=== PATIENT | female | born 1935 | race Caucasian/White ===

== ENCOUNTER 2017-02-22 05:04 | Emergency (ER) | payer OTHER ==
[~2017-02-22 05:04] MED LIST: ALLOPURINOL; ALLOPURINOL100 MG PO; ALLOPURINOL100 PO; AMBIE; AMLODIPINE10 MG PO; ATI0.5 PO; BAY PO; BENAZEPRIL10 MG PO; COLCRYS0.6 MG PO; COR3 PO; ECO81 PO; ESCITALOPRAM10 MG PO; FUROCOT40 MG PO; GABAPENTIN100 M2 PO; GABAPENTIN300 MG PO; HYDROXYCHLOROQ200 M2 PO; IMDUR30 MG PO; ISOSORBIDE MONO30 MG PO; K10 PO; KLOR-CON M2020 MEQ PO; L40 PO; LASIX; LASIX40 MG PO; LEVOTHYROXINE; LEVOTHYROXINE0.2 M2 PO; LORAZEPAM1 MG PO; LOTENSIN10 MG PO; MAC100 PO; METOLAZONE2.5 MG PO; NEURONTIN PO; NEURONTIN300 PO; POTASSIUM20 MEQ PO; SIMVASTATIN20 M1 PO; SYN125 PO; SYN2 PO; SYNTHROID PO; TRAMADOL HCL50 MG PO; TRAMADOL50 MG PO; ULORIC40 M1 PO; ULTRAM50 MG PO; VIT-GEN1 TAB; Z5 PO; ZES10 PO; ZOC20 PO
[2017-02-22 05:52] LABS: CALCIUM 8.3 mg/dL (8.5-10.1); CARBON DIOXIDE 30.2 mmol/L (21-32); CHLORIDE SERUM 108 mmol/L (98-107); CREATININE SERUM 1.3 mg/dL (0.6-1.0); GLUCOSE SERUM 101 mg/dL (74-106); POTASSIUM SERUM 4.1 mmol/L (3.5-5.1); SODIUM SERUM 142 mmol/L (136-145)
[2017-02-22 05:53] LABS: BASOPHIL % 0.6 % (0-2); PLATELET COUNT 136 x10^3mcL (130-400)
[2017-02-22 05:56] LABS: ALBUMIN 3.4 g/dL (3.4-5.0); ALKALINE PHOSPHATASE 122 U/L (46-116); ALT/SGPT 13 U/L (14-59); AST/SGOT 17 U/L (15-37); BILIRUBIN TOTAL 0.46 mg/dL (0.20-1.00); MAGNESIUM 2.1 mg/dL (1.8-2.4); TOTAL PROTEIN, SERUM 7.1 g/dL (6.4-8.2)
[2017-02-22 06:01] LABS: RED CELL DISTRIBUTION WIDTH 14.8 % (11.5-14.5)
[2017-02-22 06:07] LABS: CK-MB 0.7 ng/mL (0-3.6)
[2017-02-22 07:44] VITALS: BP 159/74
== END 2017-02-22 07:44 | disposition home or self-care (01) ==
LOC: ED 05:04
PROVIDERS: Emergency Medicine
DX: R10.13 Epigastric pain (principal); I10 Essential (primary) hypertension; M06.9 Rheumatoid arthritis, unspecified
CPT/HCPCS: 83880; Q0092

== ENCOUNTER 2017-06-18 20:25 | Observation (INO) | payer OTHER ==
[~2017-06-18] VITALS: Ht 167.6 cm; Wt 76.9 kg
--- NOTE | 2017-06-18 20:50 | NUR ---
REC'D A 81/F IN RM 9 WITH C/O EPIGASTRIC CHEST PAIN SINCE 4PM. PT REPORTS THE PAIN RADIATES TO THE LEFT SIDE. PT DENIES N/V. PT AAOX4, RESP EVEN AND UNLABORED. PT STATES THE PAIN IS NO LONGER AT THE EPIGASTRIC BUT ON THE LEFT SIDE OF THE LOWER BACK. ON CM. CALL LIGHT WITHIN REACH, [facility]
--- NOTE | 2017-06-18 20:58 | NUR ---
MEDICATED PT ORDERED. PLEASE SEE EMAR.
[2017-06-18 21:21] LABS: BASOPHIL % 1.2 % (0-2); PLATELET COUNT 152 x10^3mcL (130-400)
[2017-06-18 21:22] LABS: RED CELL DISTRIBUTION WIDTH 14.7 % (11.5-14.5)
[2017-06-18 21:35] LABS: CALCIUM 8.4 mg/dL (8.5-10.1); CARBON DIOXIDE 27.1 mmol/L (21-32); CHLORIDE SERUM 107 mmol/L (98-107); CREATININE SERUM 1.3 mg/dL (0.6-1.0); GLUCOSE SERUM 91 mg/dL (74-106); POTASSIUM SERUM 4.6 mmol/L (3.5-5.1); SODIUM SERUM 144 mmol/L (136-145)
[2017-06-18 21:42] LABS: ALBUMIN 3.7 g/dL (3.4-5.0); ALKALINE PHOSPHATASE 115 U/L (46-116); ALT/SGPT 10 U/L (14-59); AST/SGOT 17 U/L (15-37); BILIRUBIN TOTAL 0.54 mg/dL (0.20-1.00)
--- NOTE | 2017-06-18 23:34 | NUR ---
REPORT GIVEN TO GLORIA QUINTANA TO ASSUME CARE OF THE PT.
[2017-06-19 00:33] VITALS: BP 164/43
--- NOTE | 2017-06-19 00:48 | NUR ---
RECEIVED PATIENT FROM ED VIA GUERNEY, PATIENT ALERT AND ORIENTED DAUGHTER AT BEDSIDE, TELE # 47 SR, IV ACCESS TO RFA WNL, NO C/O PAIN AT THIS TIME, ORIENTED PATIENT TO ROOM AND SURROUNDINGS, BED IN LOW POSITION, BED RAILS UP X 2, CALL LIGHT WITHIN REACH, WILL CONTINUE TO MONITOR
[2017-06-19] MEDS ORDERED: LOSARTAN POTASS1 TAB PO (01:03)
[2017-06-19] MEDS ORDERED: RESTASIS0.051 OU (01:05)
[2017-06-19] MEDS ORDERED: FML OU (01:05)
[2017-06-19 02:52] LABS: FREE T4 1.83 ng/dL (0.76-1.46)
[2017-06-19 02:53] LABS: FREE THYROXINE INDEX 5.1 ug/dL (1.4-4.5); T4(THYROXINE) 13.7 ug/dL (4.7-13.3)
[2017-06-19 02:56] LABS: MAGNESIUM 2.4 mg/dL (1.8-2.4); PHOSPHOROUS 3.9 mg/dL (2.5-4.9)
[2017-06-19 03:01] LABS: CHOLESTEROL/HDL RATIO 1.5
[2017-06-19 03:07] LABS: T3 TOTAL 1.01 ng/mL
[2017-06-19 06:29] VITALS: BP 148/40
--- NOTE | 2017-06-19 06:40 | NUR ---
PATIENT RESTING IN BED, IN NO ACUTE DISTRESS, NO C/O PAIN AT THIS TIME, NO SIGNIFICANT CHANGES LAST SHIFT, BED IN LOW POSITION, BED RAILS UP X 2, CALL LIGHT WITHIN REACH, WILL ENDORSE CARE TO AM NURSE
[2017-06-19 06:48] LABS: CALCIUM 7.8 mg/dL (8.5-10.1); CHLORIDE SERUM 111 mmol/L (98-107); CREATININE SERUM 1.1 mg/dL (0.6-1.0); GLUCOSE SERUM 74 mg/dL (74-106); MAGNESIUM 2.3 mg/dL (1.8-2.4); SODIUM SERUM 146 mmol/L (136-145)
--- NOTE | 2017-06-19 07:30 | NUR ---
ALERT AND ORIENTED. SLIGHLTY TORRES MARTINEZ. BREATHING FREELY ON RA. TELE # 47 NSR. DENIES ANY PAIN CHEST OR OTHERWISE. NS INFUSING 100 CC HOUR. INDEPENDENT W ADL'S. CALL LIGHT WITHIN REACH. INSTRUCTED TO USE FOR ANY NEEDS OR NEDED ASSIST.BED IN LOW POSITION, SR UP X 2, HOB ELEVATED 35 DEGREES.
[2017-06-19 08:06] LABS: BASOPHIL % 0.6 % (0-2)
[2017-06-19 08:15] LABS: PLATELET COUNT 129 x10^3mcL (130-400); RED CELL DISTRIBUTION WIDTH 14.6 % (11.5-14.5)
[2017-06-19 09:56] LABS: UA SPECIFIC GRAVITY 1.015 (1.005-1.035); microscopic required? YES; urine erythrocyte TRACE (NEGATIVE)
[2017-06-19 10:04] VITALS: BP 167/47
[2017-06-19 14:14] VITALS: BP 152/37
[2017-06-19 14:45] VITALS: BP 152/37
--- NOTE | 2017-06-19 17:09 | NUR ---
DC'D TO HOME. TELE # 47 RETURNED TO TELE STATION. IV DC'D. T.C. TO DTR DIXIE BALLARD HER KNOW PT IS READY TO GO HOME. F/U DORENE GIVEN FOR DR. LEON. ALL DC INSTRUCTIONS REVIEWED WITH AND SIGNED BY PT.
--- NOTE | 2017-06-19 17:33 | NUR ---
NOTICED PT WAS GONE. DID NOT INFORM ANY STAFF MEMBERS WHEN SHE LEFT. PT SAID EARLIER THAT HER DTR DIXIE WAS ON HER WAY TO PICK PT UP.
== END 2017-06-19 17:30 | disposition home or self-care (01) | DRG 308 ==
LOC: ED 20:25 → DU 22:40
PROVIDERS: Specialist; ADMIT Family Medicine
DX: R00.2 Palpitations (principal); N17.0 Acute kidney failure with tubular necrosis; T38.1X5A Adverse effect of thyroid hormones and substitutes, initial encounter; D64.9 Anemia, unspecified; I35.1 Nonrheumatic aortic (valve) insufficiency; E03.9 Hypothyroidism, unspecified; I25.10 Atherosclerotic heart disease of native coronary artery without angina pectoris; E83.51 Hypocalcemia; I25.2 Old myocardial infarction; Z79.82 Long term (current) use of aspirin; Z68.27 Body mass index [BMI] 27.0-27.9, adult; Y92.009 Unspecified place in unspecified non-institutional (private) residence as the place of occurrence of the external cause
CPT/HCPCS: 83880; 84439; G0378; J7030; Q0092

== ENCOUNTER 2018-05-20 17:49 | Emergency (ER) | payer OTHER ==
[~2018-05-20] VITALS: Ht 167.6 cm; Wt 74.8 kg
[~2018-05-20 17:49] MED LIST changes: +FML OU; +LOSARTAN POTASS1 TAB PO; +RESTASIS0.051 OU
[2018-05-20 17:54] VITALS: Ht 167.6 cm; Wt 74.8 kg
[2018-05-20 20:14] VITALS: BP 160/49
== END 2018-05-20 20:14 | disposition home or self-care (01) ==
LOC: ED 17:49
DX: S80.12XA Contusion of left lower leg, initial encounter (principal); M32.9 Systemic lupus erythematosus, unspecified; Z90.710 Acquired absence of both cervix and uterus; Z86.73 Personal history of transient ischemic attack (TIA), and cerebral infarction without residual deficits; W22.8XXA Striking against or struck by other objects, initial encounter; Y93.89 Activity, other specified; Y92.89 Other specified places as the place of occurrence of the external cause; Y99.8 Other external cause status; I10 Essential (primary) hypertension
CPT/HCPCS: Q0092

== ENCOUNTER 2018-08-15 21:08 | Emergency (ER) | payer OTHER ==
[~2018-08-15] VITALS: Ht 170.2 cm; Wt 75.7 kg
[2018-08-15 21:14] VITALS: Ht 170.2 cm; Wt 75.7 kg
[2018-08-16 00:28] VITALS: BP 136/68
== END 2018-08-16 00:28 | disposition home or self-care (01) ==
LOC: ED 21:08
DX: S01.01XA Laceration without foreign body of scalp, initial encounter (principal); S40.012A Contusion of left shoulder, initial encounter; I10 Essential (primary) hypertension; Z88.5 Allergy status to narcotic agent; Z90.710 Acquired absence of both cervix and uterus; Z86.73 Personal history of transient ischemic attack (TIA), and cerebral infarction without residual deficits; W18.09XA Striking against other object with subsequent fall, initial encounter; Y93.89 Activity, other specified; Y92.89 Other specified places as the place of occurrence of the external cause; Y99.8 Other external cause status
CPT/HCPCS: 90715; J2001

== ENCOUNTER 2018-08-18 21:20 | Inpatient (IN) | payer OTHER ==
[~2018-08-18] VITALS: Ht 170.2 cm; Wt 72.1 kg
[2018-08-18 22:28] LABS: CALCIUM 8.5 mg/dL (8.5-10.1); CARBON DIOXIDE 28.8 mmol/L (21-32); CHLORIDE SERUM 107 mmol/L (98-107); CREATININE SERUM 1.2 mg/dL (0.6-1.0); GLUCOSE SERUM 111 mg/dL (74-106); POTASSIUM SERUM 3.5 mmol/L (3.5-5.1); RED CELL DISTRIBUTION WIDTH 14.2 % (11.5-14.5); SODIUM SERUM 144 mmol/L (136-145)
[2018-08-18 22:33] LABS: ALBUMIN 3.4 g/dL (3.4-5.0); ALKALINE PHOSPHATASE 100 U/L (46-116); ALT/SGPT 17 U/L (14-59); AST/SGOT 24 U/L (15-37); BILIRUBIN TOTAL 0.5 mg/dL (0.20-1.00); PLATELET COUNT 103 x10^3mcL (130-400); TOTAL PROTEIN, SERUM 7.6 g/dL (6.4-8.2)
[2018-08-18] MEDS ORDERED: CARVEDILOL12.5 M1 PO (23:42)
[2018-08-18] MEDS ORDERED: XARELTO10 M1 PO (23:42)
[2018-08-18] MEDS ORDERED: FERROUS SULFAT PO (23:42)
[2018-08-18] MEDS ORDERED: FUROSEMIDE20 MG PO (23:42)
[2018-08-18] MEDS ORDERED: MEMANTINE HCL10 MG PO (23:42)
[2018-08-18] MEDS ORDERED: AMIODARONE HCL200 MG PO (23:42)
[2018-08-18] MEDS ORDERED: GOOD SENSE OMEP20 MG PO (23:42)
[2018-08-18] MEDS ORDERED: POTASSIUM CHLO10 MEQ PO (23:43)
[2018-08-19] VITALS (7 sets, daily range): BP systolic 141–197; BP diastolic 40–55
[2018-08-19 05:57] LABS: BASOPHIL % 0.9 % (0-2); PLATELET COUNT 165 x10^3mcL (130-400); RED CELL DISTRIBUTION WIDTH 14.2 % (11.5-14.5)
[2018-08-19 06:19] LABS: CALCIUM 8.3 mg/dL (8.5-10.1); CARBON DIOXIDE 29.7 mmol/L (21-32); CHLORIDE SERUM 109 mmol/L (98-107); CREATININE SERUM 1.2 mg/dL (0.6-1.0); GLUCOSE SERUM 96 mg/dL (74-106); POTASSIUM SERUM 3.4 mmol/L (3.5-5.1); SODIUM SERUM 146 mmol/L (136-145)
== END 2018-08-19 17:30 | disposition short-term general hospital (02) | DRG 282 ==
LOC: ED 21:20 → DU 23:16
PROVIDERS: Emergency Medicine; Internal Medicine
DX: I21.4 Non-ST elevation (NSTEMI) myocardial infarction (principal); I10 Essential (primary) hypertension; E87.6 Hypokalemia; E78.49 Other hyperlipidemia; Z86.73 Personal history of transient ischemic attack (TIA), and cerebral infarction without residual deficits; Z90.710 Acquired absence of both cervix and uterus; Z82.49 Family history of ischemic heart disease and other diseases of the circulatory system; Z80.3 Family history of malignant neoplasm of breast; Z80.9 Family history of malignant neoplasm, unspecified; Z79.899 Other long term (current) drug therapy
CPT/HCPCS: J1650; J3475

== ENCOUNTER 2018-08-26 20:04 | Emergency (ER) | payer OTHER ==
[~2018-08-26 20:04] MED LIST changes: +AMIODARONE HCL200 MG PO; +CARVEDILOL12.5 M1 PO; +FERROUS SULFAT PO; +FUROSEMIDE20 MG PO; +GOOD SENSE OMEP20 MG PO; +MEMANTINE HCL10 MG PO; +POTASSIUM CHLO10 MEQ PO; +XARELTO10 M1 PO
[2018-08-26 20:43] VITALS: Ht 170.2 cm
[2018-08-26 23:12] VITALS: BP 155/87
== END 2018-08-26 23:12 | disposition home or self-care (01) ==
LOC: ED 20:04
DX: S01.91XA Laceration without foreign body of unspecified part of head, initial encounter (principal); I10 Essential (primary) hypertension; M06.9 Rheumatoid arthritis, unspecified; M32.9 Systemic lupus erythematosus, unspecified; M10.9 Gout, unspecified; Z86.73 Personal history of transient ischemic attack (TIA), and cerebral infarction without residual deficits; Z90.710 Acquired absence of both cervix and uterus; Z90.49 Acquired absence of other specified parts of digestive tract; X58.XXXD Exposure to other specified factors, subsequent encounter

== ENCOUNTER 2018-08-31 17:45 | Emergency (ER) | payer OTHER ==
[~2018-08-31] VITALS: Ht 167.6 cm; Wt 74.4 kg
[2018-08-31 18:25] VITALS: Ht 167.6 cm; Wt 74.4 kg
[2018-08-31 19:30] VITALS: BP 152/106
== END 2018-08-31 19:30 | disposition home or self-care (01) ==
LOC: ED 17:45
DX: S01.01XD Laceration without foreign body of scalp, subsequent encounter (principal); L08.9 Local infection of the skin and subcutaneous tissue, unspecified; X58.XXXD Exposure to other specified factors, subsequent encounter

== ENCOUNTER 2019-02-16 13:30 | Inpatient (IN) | payer OTHER | END 2019-02-18 18:21 | disposition home or self-care (01) | LOC: ED 13:30 → DU 17:17 → ED 13:30 → DU 20:00 → ED 13:30 → DU 17:17 → ED 13:30 → DU 17:17 → ED 13:30 → DU 17:17 → ED 13:30 → DU 17:17 → ED 13:30 → DU 17:17 → ED 13:30 → DU 17:17 → ED 13:30 → DU 17:17 → ED 13:30 → DU 17:17 | DX: A04.72 Enterocolitis due to Clostridium difficile, not specified as recurrent (principal); E03.9 Hypothyroidism, unspecified; M10.9 Gout, unspecified; M06.9 Rheumatoid arthritis, unspecified; F32.9 Major depressive disorder, single episode, unspecified; M32.9 Systemic lupus erythematosus, unspecified; Z68.24 Body mass index [BMI] 24.0-24.9, adult; Z86.73 Personal history of transient ischemic attack (TIA), and cerebral infarction without residual deficits ==

== ENCOUNTER 2019-03-15 22:55 | Emergency (ER) | payer OTHER ==
[~2019-03-15] VITALS: Ht 170.2 cm; Wt 70.3 kg
[~2019-03-15 22:55] MED LIST changes: +AMLODIPINE BES2.5 M1; +CEPHALEXIN125 MG/5 M; +FUROSEMIDE20 MG; +HYDROXYCHLOROQ200 MG; +LEXAPRO5 M1; +MULTI-VITAMINS1 TAB; +NEURONTIN100 MG; +POTASSIUM CHLO10 MEQ; +SYN15; +TOPROL XL25 MG; +TRAMADOL HCL50 MG
[2019-03-15 23:04] VITALS: Ht 170.2 cm; Wt 70.3 kg
[2019-03-15 23:38] LABS: BASOPHIL % 0.4 % (0-2); PLATELET COUNT 154 x10^3mcL (130-400)
[2019-03-15 23:39] LABS: RED CELL DISTRIBUTION WIDTH 14.9 % (11.5-14.5)
[2019-03-15 23:47] LABS: CALCIUM 8.3 mg/dL (8.5-10.1); CARBON DIOXIDE 27.3 mmol/L (21-32); CHLORIDE SERUM 104 mmol/L (98-107); CREATININE SERUM 1.2 mg/dL (0.6-1.0); GLUCOSE SERUM 103 mg/dL (74-106); POTASSIUM SERUM 3.3 mmol/L (3.5-5.1); SODIUM SERUM 140 mmol/L (136-145)
[2019-03-15 23:52] LABS: ALKALINE PHOSPHATASE 85 U/L (46-116); ALT/SGPT 11 U/L (14-59); AST/SGOT 16 U/L (15-37); BILIRUBIN TOTAL 0.7 mg/dL (0.20-1.00); LIPASE 198 IU/L (73-393); TOTAL PROTEIN, SERUM 7.5 g/dL (6.4-8.2)
[2019-03-16 03:56] VITALS: BP 122/76
== END 2019-03-16 03:56 | disposition short-term general hospital (02) ==
LOC: ED 22:55
PROVIDERS: Emergency Medicine
DX: K52.9 Noninfective gastroenteritis and colitis, unspecified (principal); E87.6 Hypokalemia; I11.0 Hypertensive heart disease with heart failure; I50.9 Heart failure, unspecified; Z90.710 Acquired absence of both cervix and uterus; Z90.49 Acquired absence of other specified parts of digestive tract
CPT/HCPCS: J1956; J2405; J3490; J7030

== ENCOUNTER 2019-07-12 21:30 | Emergency (ER) | payer OTHER ==
[~2019-07-12] VITALS: Ht 170.2 cm; Wt 67.1 kg
[2019-07-12 21:48] VITALS: BP 163/46; Ht 170.2 cm; Wt 67.1 kg
== END 2019-07-13 00:31 | disposition home or self-care (01) ==
LOC: ED 21:30
DX: S20.212A Contusion of left front wall of thorax, initial encounter (principal); I11.0 Hypertensive heart disease with heart failure; I50.9 Heart failure, unspecified; M32.9 Systemic lupus erythematosus, unspecified; N39.0 Urinary tract infection, site not specified; Z88.5 Allergy status to narcotic agent; Z90.710 Acquired absence of both cervix and uterus; Z98.890 Other specified postprocedural states; W01.0XXA Fall on same level from slipping, tripping and stumbling without subsequent striking against object, initial encounter; Y93.89 Activity, other specified; Y92.89 Other specified places as the place of occurrence of the external cause; Y99.8 Other external cause status

== ENCOUNTER 2019-08-28 13:00 | Inpatient (IN) | payer OTHER ==
[~2019-08-28] VITALS: Ht 167.6 cm; Wt 65.8 kg
[2019-08-28 13:07] VITALS: Ht 167.6 cm; Wt 65.8 kg
[2019-08-28 13:55] LABS: BASOPHIL % 1.4 % (0-2); PLATELET COUNT 286 x10^3mcL (130-400)
[2019-08-28 14:30] LABS: CALCIUM 8.6 mg/dL (8.5-10.1); CARBON DIOXIDE 31.4 mmol/L (21-32); CHLORIDE SERUM 106 mmol/L (98-107); CREATININE SERUM 1.2 mg/dL (0.6-1.0); GLUCOSE SERUM 199 mg/dL (74-106); POTASSIUM SERUM 4.4 mmol/L (3.5-5.1); SODIUM SERUM 146 mmol/L (136-145)
[2019-08-28 14:34] LABS: ALBUMIN 3.7 g/dL (3.4-5.0); ALKALINE PHOSPHATASE 89 U/L (46-116); ALT/SGPT 12 U/L (14-59); AST/SGOT 15 U/L (15-37); BILIRUBIN TOTAL 0.32 mg/dL (0.20-1.00)
[2019-08-28 14:36] LABS: TOTAL PROTEIN, SERUM 8.7 g/dL (6.4-8.2)
[2019-08-28] MEDS ORDERED: CARVEDILOL3.125 M1 PO (17:29)
[2019-08-28] MEDS ORDERED: LOSARTAN POTASS50 M1 PO (17:30)
[2019-08-28] MEDS ORDERED: NEXIUM20 MG PO (17:30)
[2019-08-28] MEDS ORDERED: NEURONTIN400 MG PO (17:31)
[2019-08-28] MEDS ORDERED: MECLIZINE HYDRO25 M1 PO (17:31)
[2019-08-28] MEDS ORDERED: ASPIR 8181 MG PO (17:32)
[2019-08-28] MEDS ORDERED: TRAMADOL HCL50 MG PO (17:33)
[2019-08-28 20:25] VITALS: BP 188/53
[2019-08-28 21:33] VITALS: BP 189/48
[2019-08-28 23:21] VITALS: BP 159/36
[2019-08-29 06:04] VITALS: BP 169/44
[2019-08-29 07:30] LABS: ALKALINE PHOSPHATASE 70 U/L (46-116); ALT/SGPT 6 U/L (14-59); AST/SGOT 9 U/L (15-37); BILIRUBIN TOTAL 0.23 mg/dL (0.20-1.00); CALCIUM 7.9 mg/dL (8.5-10.1); CARBON DIOXIDE 27.9 mmol/L (21-32); CHLORIDE SERUM 111 mmol/L (98-107); CREATININE SERUM 1.1 mg/dL (0.6-1.0); GLUCOSE SERUM 89 mg/dL (74-106); MAGNESIUM 1.9 mg/dL (1.8-2.4); POTASSIUM SERUM 3.7 mmol/L (3.5-5.1); SODIUM SERUM 147 mmol/L (136-145); TOTAL PROTEIN, SERUM 6.7 g/dL (6.4-8.2)
[2019-08-29 07:45] LABS: ALBUMIN 2.7 g/dL (3.4-5.0)
[2019-08-29 08:32] LABS: BASOPHIL % 1.3 % (0-2); PLATELET COUNT 205 x10^3mcL (130-400)
[2019-08-29 08:33] LABS: RED CELL DISTRIBUTION WIDTH 15.3 % (11.5-14.5)
[2019-08-29 09:05] VITALS: BP 146/50
[2019-08-29 12:05] VITALS: BP 140/49; BP 169/44
== END 2019-08-29 13:27 | disposition home health service (06) | DRG 206 ==
LOC: ED 13:00 → DU 16:37
PROVIDERS: ADMIT Internal Medicine Pulmonary Disease
DX: M94.0 Chondrocostal junction syndrome [Tietze] (principal); I11.0 Hypertensive heart disease with heart failure; I50.9 Heart failure, unspecified; M06.9 Rheumatoid arthritis, unspecified; M10.9 Gout, unspecified; M32.9 Systemic lupus erythematosus, unspecified; I25.2 Old myocardial infarction; Z86.73 Personal history of transient ischemic attack (TIA), and cerebral infarction without residual deficits
CPT/HCPCS: 83880; 90658; 90732; G0378; J1644

== ENCOUNTER 2019-09-10 12:37 | Observation (INO) | payer OTHER ==
[~2019-09-10] VITALS: Ht 170.2 cm; Wt 64.2 kg
[~2019-09-10 12:37] MED LIST changes: +ASPIR 8181 MG PO; +CARVEDILOL3.125 M1 PO; +LOSARTAN POTASS50 M1 PO; +MECLIZINE HYDRO25 M1 PO; +NEURONTIN400 MG PO; +NEXIUM20 MG PO
[2019-09-10 12:45] VITALS: Ht 170.2 cm; Wt 64.2 kg
--- NOTE | 2019-09-10 12:48 | NUR ---
PT BIBA FROM HOME FOR C/O INCR WEAKNESS SINCE ONSET OF MULTIPLE DIARRHEA EPISODES YESTERDAY. PT REPORTS 6 EPISODES YESTERDAY AND 7 EPISODES TODAY THAT ARE LOOSE AND YELLOW IN COLOR. PT REPORTS DIARRHEA APPEARS TO BE SIMILAR TO WHEN SHE HAD C DIF.
[2019-09-10 13:48] LABS: BASOPHIL % 0.3 % (0-2); PLATELET COUNT 140 x10^3mcL (130-400)
[2019-09-10 13:52] LABS: RED CELL DISTRIBUTION WIDTH 14.9 % (11.5-14.5)
[2019-09-10 14:02] LABS: CALCIUM 8.1 mg/dL (8.5-10.1); CARBON DIOXIDE 23.8 mmol/L (21-32); CHLORIDE SERUM 105 mmol/L (98-107); CREATININE SERUM 1.3 mg/dL (0.6-1.0); GLUCOSE SERUM 91 mg/dL (74-106); POTASSIUM SERUM 3.8 mmol/L (3.5-5.1); SODIUM SERUM 141 mmol/L (136-145)
[2019-09-10 14:12] LABS: ALKALINE PHOSPHATASE 90 U/L (46-116); ALT/SGPT 7 U/L (14-59); AST/SGOT 13 U/L (15-37); TOTAL PROTEIN, SERUM 7.6 g/dL (6.4-8.2)
[2019-09-10 14:14] LABS: T3 TOTAL 0.55 ng/mL
[2019-09-10 14:20] LABS: ALBUMIN 3.1 g/dL (3.4-5.0); C REACTIVE PROTEIN 13.8 mg/dL (<=0.9); CK-MB 0.5 ng/mL (0-3.6); FREE T4 0.81 ng/dL (0.76-1.46); FREE THYROXINE INDEX 2.3 ug/dL (1.4-4.5); T4(THYROXINE) 6.7 ug/dL (4.7-13.3)
--- NOTE | 2019-09-10 14:32 | NUR ---
STARTED IVF BOLUS PER ORDER. PT ALERT AND ORIENTED WITH FAMILY AT BEDSIDE. PT HAS NO C/O PAIN AT THIS TIME. ALL NEEDS MET AT THIS TIME.
[2019-09-10 14:51] LABS: ERYTHROCYTE SED RATE 46 mm/hr (0-30)
--- NOTE | 2019-09-10 15:34 | NUR ---
DR PRITCHARD AWARE OF DIASTOLIC BP. NO NEW ORDERS. PT FEELS TIRED BUT SPEAKS IN FULL CLEAR SENTENCES. REMAINS AAOX4
--- NOTE | 2019-09-10 16:48 | NUR ---
WAKLED PT TO RESTROOM. STEADY BUT SLOW GAIT.
--- NOTE | 2019-09-10 17:12 | NUR ---
DAUGHTER INFORMED OF ADMISSION
--- NOTE | 2019-09-10 17:34 | NUR ---
REPORT GIVEN TO NANETTE
[2019-09-10 17:36] LABS: UA SPECIFIC GRAVITY >=1.030 (1.005-1.035); microscopic required? YES; urine erythrocyte 1+ (NEGATIVE)
--- NOTE | 2019-09-10 18:29 | NUR ---
PATIENT ARRIVED TO FLOOR, A/OX4. HAS 5/10 MID ABDOMINAL PAIN AT THIS TIME. BS ACTIVE, SOFT, FLAT, NONTENDER. ALSO STATES THAT SHE HAS DIZZINESS. PATIENT HAS MORPHINE ALLERGY AND PHARMACY AWARE. PHARMACIST STATES HE WILL CONTACT DR VILA FOR PAIN CONTROL. PATIENT AND DAUGHTER UPDATED TO PLAN OF CARE FOR TONIGHT INCLUDING IV HYDRATION AND IV ANTIBIOTICS AND ALSO NEED FOR STOOL SPECIMEN. BOTH PATIENT AND DAUGHTER VERBALIZE UNDERSTANDING AND AGREES. INSTRUCTED PATIENT ON BED CONTROLS AND USE OF CALL LIGHT FOR ASSISTANCE. PATIENT LIKELY TO MOVE TO ANOTHER ROOM. WILL ENDORSE TO ONCOMING NURSE.
--- NOTE | 2019-09-10 19:35 | NUR ---
RECEIVED THE PATIENT FROM DAY SHIFT RN. PT AAOX4. DENIES CANO/DIZZINESS. BREATHING EVEN AND UNLABORED ON RA WITH NO SOB NOTED. IV LFA PATENT, INFUSING WELL. PT ON [place]. ABD SOFT/ROUND ACTIVE BOWEL SOUNDS. DENIES ABD PAIN/N/V. PT CC REPORTED CONT HAVING DIARRHEA FOR A FEW MONTHS ON AND OFF. NO DIARRHEA AT THIS TIME. VOIDS FREELY. AMBULATORY WITH ASSISTANCE. SKIN WARM/DRY/INTACT. NO SIGNS OF DISTRESS. CALL BUTTON WITHIN REACH. SAFETY PRECAUTIONS IN PLACE. WILL CONTINUE TO MONITOR.
[2019-09-10 20:08] VITALS: BP 138/30
--- NOTE | 2019-09-10 23:50 | NUR ---
DR REINOSO AT BEDSIDE, NEW ORDERS CARRIED OUT.
--- NOTE | 2019-09-11 02:00 | NUR ---
PT RESTING. BREATHING EVEN AND UNALABORED ON RA WITH NO SOB NOTED. CALL BUTTON WITHIN REACH. SAFETY PRECAUTIONS IN PLACE. WILL CONTINUE TO MONITOR.
[2019-09-11 05:19] VITALS: BP 98/48
--- NOTE | 2019-09-11 06:23 | NUR ---
PT SLEPT MOST OF THE NIGHT WITH NO SIGNS OF DISTRESS NOTED. IV PATENT, INFUSING WELL. NO SIGNS OF DISTRESS. PT AMBULATORY WITH ASSIST. PT CONT TO HAVE WATERY STOOL. CONTACT ISOLATION IN PLACE. MEDICATED PER EMAR. CALL BUTTON WITHIN REACH. SAFETY PRECAUTIONS IN PLACE. WILL CONTINUE TO MONITOR AND ENDORSE CARE TO DAY SHIFT RN.
[2019-09-11 07:18] LABS: ALKALINE PHOSPHATASE 72 U/L (46-116); AST/SGOT 15 U/L (15-37); BILIRUBIN TOTAL 0.66 mg/dL (0.20-1.00); CALCIUM 7.9 mg/dL (8.5-10.1); CARBON DIOXIDE 22.4 mmol/L (21-32); CHLORIDE SERUM 111 mmol/L (98-107); GLUCOSE SERUM 81 mg/dL (74-106); POTASSIUM SERUM 3.6 mmol/L (3.5-5.1); SODIUM SERUM 143 mmol/L (136-145); TOTAL PROTEIN, SERUM 6.4 g/dL (6.4-8.2)
--- NOTE | 2019-09-11 07:23 | NUR ---
PT BREATHING EVEN AND UNLABORED ON RA WITH NO SOB NOTED. NO SIGNS OF DISTRESS NOTED. ENDORSED CARE TO DAY SHIFT RN, ALL QUESTIONS ADDRESSED.
[2019-09-11 07:29] LABS: ALBUMIN 2.5 g/dL (3.4-5.0)
[2019-09-11 07:38] LABS: ALT/SGPT 6 U/L (14-59)
--- NOTE | 2019-09-11 08:00 | NUR ---
SHIFT ASSESSMENT DONE. PATIENT A/A/OX4; [place]. NO RESP DISTRESS ON RA. DENIED CHEST PAIN. DIARRHEA WITH YELLOW WATERY BM. DENIED ABD PAIN NOW. HX OF C-DIFF, CONTACT ISOLATION IN PLACE. GENERAL WEAKNESS, NEED ASSIST FOR BRP. REGULAR DIET. IVF OF NS 80CC/HR. IV SITE TO LFA INTACT. CALL LIGHT IN REACH.
[2019-09-11 08:36] LABS: BASOPHIL % 0.6 % (0-2)
[2019-09-11 08:39] LABS: RED CELL DISTRIBUTION WIDTH 15.2 % (11.5-14.5)
[2019-09-11 08:40] LABS: PLATELET COUNT 115 x10^3mcL (130-400)
[2019-09-11 09:09] VITALS: BP 150/37
--- NOTE | 2019-09-11 09:30 | NUR ---
DR. KEVIN CAME TO SEE PATIENT. REPORTED TO DR. KEVIN WITH PATIENT HAD DIARRHEA.
[2019-09-11 17:35] VITALS: BP 182/52
--- NOTE | 2019-09-11 17:45 | NUR ---
CALLED AND REPORTED TO DR. KEVIN WITH PATIENT'S B/P = 182/52. TELEPHONE ORDER GIVEN.
--- NOTE | 2019-09-11 18:09 | NUR ---
[facility] REPORTED - STOOL C DIFF (+). PATIENT HAS BEEN CONTACT ISOLATION AND TREATED C DIFF.
--- NOTE | 2019-09-11 18:45 | NUR ---
HAD DIARRHEA X6, WATERY BM THIS SHIFT. LOSARTEN AND COREG PO GIVEN FOR HTN. ENDORSED NOC TO CONTINUE MONITOR B/P.
--- NOTE | 2019-09-11 19:30 | NUR ---
Pt. received from day shift resting in bed and awake. Pt. is currently on contact precautions d/t C-Diff. Pt. is a/o x4, able to make most needs known, speaks Setswana and is hard of hearing at times. pt. is M/X, no edema ntoed with positive pulses, lung sounds clear and pt. is on RA no c/o of SOB or chest pain at this time. Pt. is having episodes of diarrhea throughout the shift will conitnue to monitor pt. Pt. voids w/o no c/o of pain or burning. Pt. IV site in tact and patent with NS runing at 80 cc/hr. Pt. safety in check with call light placed within reach, pt. educated on when and how to use call light system, bed set at lowest position, will continue to monitor.
--- NOTE | 2019-09-11 21:32 | NUR ---
MD call center called at 2124 d/t low platelet count of 115 down from 140 on 09/10. MD on-call (Dr. Vicente) called ck at 2131 and was informed of lab values, and said the medication was okay to give at this time. Will continue to monitor pt.
[2019-09-11 21:49] VITALS: BP 158/44
--- NOTE | 2019-09-12 | NUR ---
Pt. currently resting in bed, asleep, but easiily awakable with verbal stimuli. Pt. requested for a snack, and was given vanilla pudding. Pt. has no c/o of pain, no s/o of distress of sob at this time. ordered Vanco 125 capsule q6h, will put order in and continue to monitor.
--- NOTE | 2019-09-12 05:38 | NUR ---
Pt. noted to be asleep at this time, and has equal portions of both sleep and being awake throughout shift. Pt. states she goes in and out of sleep, but denies pain at this time. Pt. noted to have 2 LBM episodes this shift and has been cleaned by DIET KITCHEN COOK and pt. req. that DIET KITCHEN COOK or the person that cleans her up be female if possible. Pt. has no s/o of SOB or distress at this time or c/o of any pain. Will continue to monitor pt. until end of shift and endorse to next shift.
[2019-09-12 05:51] VITALS: BP 168/54
[2019-09-12 07:27] LABS: ALKALINE PHOSPHATASE 67 U/L (46-116); AST/SGOT 9 U/L (15-37); BILIRUBIN TOTAL 0.28 mg/dL (0.20-1.00); CALCIUM 7.7 mg/dL (8.5-10.1); CARBON DIOXIDE 22.1 mmol/L (21-32); CHLORIDE SERUM 114 mmol/L (98-107); CREATININE SERUM 0.8 mg/dL (0.6-1.0); GLUCOSE SERUM 92 mg/dL (74-106); SODIUM SERUM 147 mmol/L (136-145); TOTAL PROTEIN, SERUM 6.3 g/dL (6.4-8.2)
--- NOTE | 2019-09-12 07:55 | NUR ---
RECEIVED PT IN BED. ASSESSED AND DOCUMENTED. DENIES PAIN THIS TIME. STABLE. SAFTEY PRECAUTIONS ARE IN PLACE. WILL MONITOR. ON CONTACT ISO FOR C-DIFF.
[2019-09-12 08:32] LABS: ALT/SGPT 7 U/L (14-59)
[2019-09-12 08:36] LABS: ALBUMIN 2.5 g/dL (3.4-5.0)
[2019-09-12 08:57] VITALS: BP 177/58
[2019-09-12] MEDS ORDERED: FLA500 PO (09:56)
[2019-09-12] MEDS ORDERED: CIPRO500 MG PO (09:56)
--- NOTE | 2019-09-12 11:00 | NUR ---
PT RESTING IN BED COMFORTABLY, EATING WELL. DENIES ANY PAIN, HAD 1 DIARRHEA. STABLE. WILL MONITOR.
[2019-09-12 15:18] VITALS: BP 157/40
--- NOTE | 2019-09-12 15:30 | NUR ---
INFORMED ABOUT K=3 AND RECEIVED KCL 40MEQ T.O. ALSO INFORMED HIM ABOUT PT BP WAS 170/50, COREG PO GIVEN AND RECHECKED BP IS 157/40 WITH MAP 74. HE SAID PT IS STABLE TO GO HOME. DENIES ANY PAIN. AWARE ABOUT PT STILL HAVING DIARRHEA, 2 TODAY.
--- NOTE | 2019-09-12 16:05 | NUR ---
PT'S DAUGHTER IS HERE TO CHIEF DIVERSITY OFFICER PT. PT IS STABLE. DENIES ANY PAIN. DISCHARGE INSTRUCTIONS AND PRESCRIPTIONS GIVEN. PB SIGNED AND SENT WITH PT. IV REMOVED AND DRESSING APPLIED. FUR POLISHER WHEELED PT DOWN TO LOBBY ACCOMPANIED WITH PT'S DAUGHTER. PT DC HOME.
== END 2019-09-12 16:21 | disposition home or self-care (01) | DRG 372 ==
LOC: ED 12:37 → MU 15:19
PROVIDERS: Specialist; ADMIT Internal Medicine
DX: A04.71 Enterocolitis due to Clostridium difficile, recurrent (principal); I50.42 Chronic combined systolic (congestive) and diastolic (congestive) heart failure; I11.0 Hypertensive heart disease with heart failure; E86.0 Dehydration; Z86.73 Personal history of transient ischemic attack (TIA), and cerebral infarction without residual deficits; Z88.5 Allergy status to narcotic agent
CPT/HCPCS: 84439; 87046; 87046-59; G0378; J1644; J3490; J7030; Q0092

== ENCOUNTER 2019-11-02 09:45 | Emergency (ER) | payer OTHER ==
[~2019-11-02] VITALS: Ht 167.6 cm; Wt 64.4 kg
[~2019-11-02 09:45] MED LIST changes: +CIPRO500 MG PO; +FLA500 PO
[2019-11-02 09:56] VITALS: Ht 167.6 cm; Wt 64.4 kg
[2019-11-02 10:59] LABS: PLATELET COUNT 125 x10^3mcL (130-400)
[2019-11-02 11:55] LABS: UA SPECIFIC GRAVITY 1.025 (1.005-1.035); microscopic required? YES; urine erythrocyte 3+ (NEGATIVE)
[2019-11-02 12:25] LABS: CALCIUM 8.2 mg/dL (8.5-10.1); CARBON DIOXIDE 29.9 mmol/L (21-32); CHLORIDE SERUM 99 mmol/L (98-107); CREATININE SERUM 1.1 mg/dL (0.6-1.0); GLUCOSE SERUM 91 mg/dL (74-106); POTASSIUM SERUM 3.4 mmol/L (3.5-5.1); SODIUM SERUM 137 mmol/L (136-145)
[2019-11-02 12:29] LABS: ALKALINE PHOSPHATASE 83 U/L (46-116); ALT/SGPT 10 U/L (14-59); AST/SGOT 15 U/L (15-37); BILIRUBIN TOTAL 1.4 mg/dL (0.20-1.00); LIPASE 31 IU/L (73-393); TOTAL PROTEIN, SERUM 7.3 g/dL (6.4-8.2)
[2019-11-02 14:00] LABS: BAND NEUTROPHIL 30 % (0-10); BASOPHIL 0 % (0-2); MONOCYTE 7 % (0-7); SEGMENTED NEUTROPHILS 57 % (37-75)
[2019-11-02 14:01] LABS: PLATELET MORPHOLOGY PLATELETS DECREASED
[2019-11-02 14:02] LABS: rbc morphology (normal/abnorm) ABNORMAL (NORMAL)
[2019-11-02 17:23] VITALS: BP 172/44
== END 2019-11-02 18:05 | disposition short-term general hospital (02) ==
LOC: ED 09:45
PROVIDERS: Emergency Medicine
DX: S40.011A Contusion of right shoulder, initial encounter (principal); D72.825 Bandemia; E87.6 Hypokalemia; R53.1 Weakness; I11.0 Hypertensive heart disease with heart failure; I50.9 Heart failure, unspecified; Z86.19 Personal history of other infectious and parasitic diseases; Z86.73 Personal history of transient ischemic attack (TIA), and cerebral infarction without residual deficits; Z90.710 Acquired absence of both cervix and uterus; Z88.5 Allergy status to narcotic agent; W06.XXXA Fall from bed, initial encounter; Y93.89 Activity, other specified; Y92.89 Other specified places as the place of occurrence of the external cause; Y99.8 Other external cause status
CPT/HCPCS: 87804; J1956; J3490; Q0092

== ENCOUNTER 2019-11-11 03:40 | Emergency (ER) | payer OTHER ==
[~2019-11-11] VITALS: Ht 167.6 cm; Wt 59.0 kg
[2019-11-11 04:31] VITALS: Ht 167.6 cm; Wt 59.0 kg
[2019-11-11 09:10] VITALS: BP 144/75
== END 2019-11-11 09:10 | disposition home or self-care (01) ==
LOC: ED 03:40
DX: M19.022 Primary osteoarthritis, left elbow (principal); I50.9 Heart failure, unspecified; I10 Essential (primary) hypertension; M10.9 Gout, unspecified; M06.9 Rheumatoid arthritis, unspecified; Z86.73 Personal history of transient ischemic attack (TIA), and cerebral infarction without residual deficits; Z90.710 Acquired absence of both cervix and uterus; Z88.5 Allergy status to narcotic agent
CPT/HCPCS: 36415; J1885; Q0092

== ENCOUNTER 2019-11-28 10:07 | Emergency (ER) | payer OTHER ==
[~2019-11-28] VITALS: Ht 167.6 cm; Wt 65.8 kg
[2019-11-28 10:59] LABS: BASOPHIL % 1.7 % (0-2); PLATELET COUNT 130 x10^3mcL (130-400)
[2019-11-28 11:04] LABS: RED CELL DISTRIBUTION WIDTH 15.5 % (11.5-14.5)
[2019-11-28 11:38] LABS: ALKALINE PHOSPHATASE 85 U/L (46-116); ALT/SGPT 11 U/L (14-59); AST/SGOT 13 U/L (15-37); BILIRUBIN TOTAL 0.5 mg/dL (0.20-1.00); CALCIUM 8.8 mg/dL (8.5-10.1); CARBON DIOXIDE 29.9 mmol/L (21-32); CHLORIDE SERUM 108 mmol/L (98-107); GLUCOSE SERUM 98 mg/dL (74-106); HDL CHOLESTEROL 49 mg/dL (40-60); PHOSPHOROUS 3.7 mg/dL (2.5-4.9); POTASSIUM SERUM 4.9 mmol/L (3.5-5.1); SODIUM SERUM 145 mmol/L (136-145); URIC ACID 6.2 mg/dL (2.6-6.0)
[2019-11-28 11:40] LABS: CHOLESTEROL 131 mg/dL (<200)
[2019-11-28 13:07] VITALS: BP 165/43
== END 2019-11-28 13:07 | disposition home or self-care (01) ==
LOC: ED 10:07
PROVIDERS: Emergency Medicine
DX: I16.0 Hypertensive urgency (principal); I11.0 Hypertensive heart disease with heart failure; I50.9 Heart failure, unspecified; Z90.710 Acquired absence of both cervix and uterus; Z90.49 Acquired absence of other specified parts of digestive tract; Z88.5 Allergy status to narcotic agent
CPT/HCPCS: 36415

== ENCOUNTER 2019-12-01 05:44 | Inpatient (IN) | payer OTHER ==
[~2019-12-01] VITALS: Ht 170.2 cm; Wt 64.4 kg
[2019-12-01 06:32] LABS: CARBON DIOXIDE 23.9 mmol/L (21-32); CHLORIDE SERUM 103 mmol/L (98-107); CREATININE SERUM 1.4 mg/dL (0.6-1.0); GLUCOSE SERUM 173 mg/dL (74-106); POTASSIUM SERUM 3.8 mmol/L (3.5-5.1); SODIUM SERUM 141 mmol/L (136-145)
[2019-12-01 06:35] LABS: ALBUMIN 3.6 g/dL (3.4-5.0); ALKALINE PHOSPHATASE 116 U/L (46-116); ALT/SGPT 16 U/L (14-59); AST/SGOT 25 U/L (15-37); BILIRUBIN TOTAL 0.6 mg/dL (0.20-1.00); TOTAL PROTEIN, SERUM 8.3 g/dL (6.4-8.2)
[2019-12-01 06:36] LABS: PLATELET COUNT 200 x10^3mcL (130-400); RED CELL DISTRIBUTION WIDTH 15.3 % (11.5-14.5)
[2019-12-01] MEDS ORDERED: COZAAR100 MG PO (07:29)
[2019-12-01 11:12] VITALS: BP 132/47
[2019-12-01 15:06] VITALS: BP 140/47
[2019-12-01 18:05] VITALS: BP 149/44
[2019-12-01 21:12] VITALS: BP 134/33
[2019-12-02] VITALS (7 sets, daily range): BP systolic 92–167; BP diastolic 33–56
[2019-12-03 05:23] VITALS: BP 141/31
[2019-12-03 06:39] LABS: CALCIUM 8.6 mg/dL (8.5-10.1); CARBON DIOXIDE 37.9 mmol/L (21-32); CHLORIDE SERUM 101 mmol/L (98-107); CREATININE SERUM 1.6 mg/dL (0.6-1.0); GLUCOSE SERUM 82 mg/dL (74-106); POTASSIUM SERUM 3.6 mmol/L (3.5-5.1); SODIUM SERUM 145 mmol/L (136-145)
[2019-12-03 07:09] LABS: PLATELET COUNT 140 x10^3mcL (130-400)
[2019-12-03 07:13] LABS: BASOPHIL % 0.6 % (0-2)
[2019-12-03 07:19] LABS: RED CELL DISTRIBUTION WIDTH 15.3 % (11.5-14.5)
[2019-12-03 08:10] VITALS: BP 140/57
[2019-12-03 11:43] VITALS: BP 150/49
[2019-12-03 16:22] VITALS: BP 159/42
[2019-12-03 19:30] VITALS: BP 154/40
[2019-12-04 04:22] VITALS: BP 137/43
[2019-12-04 06:41] LABS: BASOPHIL % 1.7 % (0-2); PLATELET COUNT 137 x10^3mcL (130-400)
[2019-12-04 06:42] LABS: RED CELL DISTRIBUTION WIDTH 15.2 % (11.5-14.5)
[2019-12-04 06:55] LABS: CALCIUM 8.5 mg/dL (8.5-10.1); CARBON DIOXIDE 37.4 mmol/L (21-32); CHLORIDE SERUM 98 mmol/L (98-107); CREATININE SERUM 1.5 mg/dL (0.6-1.0); GLUCOSE SERUM 100 mg/dL (74-106); SODIUM SERUM 140 mmol/L (136-145)
[2019-12-04 07:48] LABS: POTASSIUM SERUM 2.8 mmol/L (3.5-5.1)
[2019-12-04 08:50] VITALS: BP 184/49
[2019-12-04 12:26] VITALS: BP 173/50
[2019-12-04 16:21] VITALS: Ht 170.2 cm; Wt 64.4 kg
[2019-12-04 17:10] VITALS: BP 190/67
[2019-12-04 18:00] VITALS: BP 161/49
== END 2019-12-04 18:32 | DRG 193 ==
LOC: ED 05:44 → DU 08:03
PROVIDERS: Emergency Medicine; ADMIT Internal Medicine
DX: J18.9 Pneumonia, unspecified organism (principal); J96.01 Acute respiratory failure with hypoxia; I50.33 Acute on chronic diastolic (congestive) heart failure; I35.2 Nonrheumatic aortic (valve) stenosis with insufficiency; I11.0 Hypertensive heart disease with heart failure; M32.9 Systemic lupus erythematosus, unspecified; M10.9 Gout, unspecified; M06.9 Rheumatoid arthritis, unspecified; Z86.73 Personal history of transient ischemic attack (TIA), and cerebral infarction without residual deficits; Z68.23 Body mass index [BMI] 23.0-23.9, adult
CPT/HCPCS: 36415; 36600; 83880; 87804; 97116-GP; 97530-GP; G0378; J1940; J1956; J2405; J2543; J3010; Q0092

== ENCOUNTER 2020-01-31 07:58 | Inpatient (IN) | payer OTHER ==
[~2020-01-31] VITALS: Ht 165.1 cm; Wt 59.0 kg
[~2020-01-31 07:58] MED LIST changes: +COZAAR100 MG PO
[2020-01-31 08:03] VITALS: Ht 165.1 cm; Wt 59.0 kg
--- NOTE | 2020-01-31 08:35 | NUR ---
PT INSTRUCTED TO OBTAIN URINE SAMPLE. PT AMBULATED TO RESTROOM AND BACK TO [facility] WITH A STEADY GAIT WIHOUT INCIDIENT,
[2020-01-31 08:36] LABS: BASOPHIL % 0.8 % (0-2); PLATELET COUNT 221 x10^3mcL (130-400)
[2020-01-31 08:37] LABS: RED CELL DISTRIBUTION WIDTH 15.7 % (11.5-14.5)
[2020-01-31 08:45] LABS: CALCIUM 8.6 mg/dL (8.5-10.1); CARBON DIOXIDE 30.8 mmol/L (21-32); CHLORIDE SERUM 102 mmol/L (98-107); CREATININE SERUM 1.7 mg/dL (0.6-1.0); GLUCOSE SERUM 109 mg/dL (74-106); POTASSIUM SERUM 3.3 mmol/L (3.5-5.1); SODIUM SERUM 140 mmol/L (136-145)
--- NOTE | 2020-01-31 08:45 | NUR ---
XRAY AT BEDSIDE
[2020-01-31 08:47] LABS: ALKALINE PHOSPHATASE 99 U/L (46-116); ALT/SGPT 13 U/L (14-59); AST/SGOT 16 U/L (15-37); BILIRUBIN TOTAL 1.1 mg/dL (0.20-1.00); HDL CHOLESTEROL 51 mg/dL (40-60); LIPASE 55 IU/L (73-393); TOTAL PROTEIN, SERUM 7.9 g/dL (6.4-8.2); TRIGLYCERIDES 78 mg/dL (<150)
--- NOTE | 2020-01-31 08:52 | NUR ---
PT BIB SELF AND C/O SOB SINCE THIS MORNING. PT STATES "ITS WORSE TO BREATHE WHEN I WALK" AND DENIES ANY COUGH. PT REPORTS CARDIAC HX AND LUPUS. PT IS AAOX4 NO DISTRESS NOTED, RESP E/U, LUNG FILEDS ALL CLEAR TO AUSCULTATION. SKIN INTACT , PINK, WARM AND DRY. PT GOWNED, PLACED ON FULL CM, NSR NOTED. BED AT LOWEST POSITION AND SIDE RAILS X2 FOR SAFETY. MSE COMPLETED BY MD CRUMP. FLUIDS INFUSING WITH NO PROBLEM. WILL CONTINUE TO MONITOR.
--- NOTE | 2020-01-31 09:00 | NUR ---
CHAPALY PRITCHARD WITH RECTAL EXAM, PT TOLERATED WELL, NO DISTRESS NOTED
[2020-01-31 09:05] LABS: ALBUMIN 3.2 g/dL (3.4-5.0); CHOLESTEROL 109 mg/dL (<200); CHOLESTEROL/HDL RATIO 2.1
[2020-01-31] MEDS ORDERED: GRALISE600 MG PO (09:35)
[2020-01-31] MEDS ORDERED: CARVEDILOL3.125 M1 PO (09:35)
[2020-01-31] MEDS ORDERED: ASPIR 8181 MG PO (09:35)
[2020-01-31] MEDS ORDERED: COZAAR25 M1 PO (09:36)
[2020-01-31] MEDS ORDERED: ULTRAM50 MG PO (09:36)
--- NOTE | 2020-01-31 09:59 | NUR ---
PT WAITING FOR AVAILABLE ROOM FOR ADMISSION. BED AT LOWEST POSITION, SIDE RAILS UP X2 FOR SAFETY. NO DISTRESS NOTED AT THIS TIME, RESP E/U. WILL CONTINUE TO MONITOR.
[2020-01-31 10:04] LABS: T3 TOTAL 0.8 ng/mL
--- NOTE | 2020-01-31 10:26 | NUR ---
ADMISSION REPORT GIVEN TO DORENE CASTRO.
[2020-01-31 10:31] LABS: microscopic required? YES; urine erythrocyte NEGATIVE (NEGATIVE)
[2020-01-31 10:34] LABS: FREE T4 1.23 ng/dL (0.76-1.46); T4(THYROXINE) 8.7 ug/dL (4.7-13.3)
--- NOTE | 2020-01-31 10:35 | NUR ---
RECEIVED Pt FROM ER VIA GURNEY Pt AMBULATED ASSISTED TO HER BED SLOW STEADY GAIT NOTED.Pt ADMITTED FOR SOB A&O X4. LUNG SOUNDS DIMINSHED BILAT DENIES ANY SOB RECEIVED ON RA 97%. CHEST RISE EQUAL AND UNLABORED. ATTATCHED TELE MONITOR# 7 Pt DENIES ANY CHEST PAIN AT THIS TIME. Pt C/O HEADACHE 01/11 WILL MEDICATE PER JAN. IV ON L WRIST AND RFA PATENT AND INTACT. BP ELEVATED WILL CALL DR PRITCHETT FOR ORDERS. Pt STATED SHE HAS NOT TAKEN ANY OF HER HOME MEDS TODAY. ABD SOFT AND FLAT ACTIVE IN ALL 4 QUADS. Pt REPORTS POOR APPETITE FOR >1WK AND MAJOR WEIGHT LOSS IN 1 YEAR DUE TO C.DIFF STATED BY Pt. ECCHYMOSIS ON RUE GOOD AND ON RIGHT HIP. ALL NEEDS ATTENDED TO AT THIS TIME. BED IN LOWEST POSITON CALL LIGHT WITHIN REACH. WILL CONTINUE TO MONITOR.
[2020-01-31 11:04] VITALS: BP 162/42
--- NOTE | 2020-01-31 11:20 | NUR ---
RECEIVED TELEPHONE ORDER FROM DR PRITCHETT FOR DIET 2G NA2+, TO RESUME HOME MEDS. READ BACK AND CONFIRMED WILL CARRY OUT NEW ORDER DIRECTED.
--- NOTE | 2020-01-31 11:45 | NUR ---
ADMINISTERED HOME MEDS DUE TO HIGH BP. Pt TOLERATED WELL NO ADVERSE REACTIONS NOTED. IV INFUSING PATENT AND INTATC. DR PRITCHETT UPDATED Pt ON CARE. NO S/S OF ANY ACUTE DISTRESS. WILL CONTINUE TO MONITOR.
[2020-01-31 12:19] VITALS: BP 162/42
[2020-01-31 12:43] VITALS: BP 162/42
--- NOTE | 2020-01-31 12:45 | NUR ---
Pt SITTING UP IN BED EATING LUINCH TOLERATING DIET NO S/S OF ANY ACUTE DISTRESS ALL NEEDS ATTENDED TO. BED INLOWEST POSITION CALL LIGHT WITHIN REACH. WILL CONTINUE TO MONITOR.
[2020-01-31 12:59] VITALS: BP 145/52
--- NOTE | 2020-01-31 14:03 | NUR ---
UPDATED DAUGHTER ON CARE STATUS ALL QUESTIONS AND CONCERNS ADDRESSED
--- NOTE | 2020-01-31 14:47 | NUR ---
Pt C/O ABD PAIN 04/13 REQUESTING NORC ADMINISTERED NORCO PO PER JAN Pt TOLERATED WELL NO ADVERSE REACTIONS NOTED. ALL NEEDS ATTENDED TO BED IN LOWEST POSITON CALL LIGHT WITHIN REACH. WILL CONTINUE TO MONITOR.
[2020-01-31 17:25] VITALS: BP 143/33
--- NOTE | 2020-01-31 18:14 | NUR ---
Pt SITTING UP IN BED EATING DINNER TOLERATED DIET WELL DENIES ANY N/V OR PAIN. Pt ON RA NO S/S OF ANY RESPIRATORY DISTRESS. ON TELE MONITOR 7 DENIES CHEST PAIN OR PRESSURE. IV ON R AND LFA PATENT AND INATCT NO REDNESS OR EDEMA. ALLQUESTIONS AND CONCERNS ADDRESSED. BED IN LOWEST POSITION CALL LIGHT WITHIN REACH. WILL ENDORSE CARE TO NIGHT NURSE.
--- NOTE | 2020-01-31 19:30 | NUR ---
RECEIVED PT RESTING IN BED, NO ACUTE DISTRESS NOTED. PT AOX4, DENIES CANO/DIZZINESS. TELE # 7, SR , DENIES CP. PT HX OF AORTIC STENOSIS. PULSES PALPABLE BILAT, DENIES NUMBNESS/TINGLING IN FEET. RESP EVEN AND UNLABAORED ON RA, DENIES SOB. ABD SOFT, ROUND, PER DAYSHIFT NURSE PT WAS PREVIOUSLY REPORTING CONSTIPATION, ALTHOUGH UPON ASSESSMENT, PT STATES SHE HAS AN EPISODE OF LOOSE STOOL IN BED D/T PT COULD NOT GET TO THE RESTROOM IN TIME. WILL MONITOR FOR CONTINUED DIARRHEA EPISODES. PT VOIDS FREELY, DENIES DYSURIA. GENERALIZED WEAKNESS, AMB AT BASELINE ALTHOUGH PT REPORTED UPON ADMISSION A HX OF FALLS X4 DAYS AGO AT HOME D/T DIZZINESS. PT SCHEDULED TO RECIEVED ANTIVERT. DENIES IZZINESS AT THIS TIME. RUE ECCHYMOSIS, AND RT HIP ECCHYMOSIS S/P FALL AT HOME. IV SITE TO THE RFA, LFA SALINE LOCKED. NO REDNESS, SWELLING OR PAIN NOTED. ALL COMFORT AND SAFETY MEASURES PROVIDED FOR, CALL LIGHT WITHIN REACH, BED IN LOWEST POSITION, WILL CONTINUE TO MONITOR.
[2020-01-31 20:46] VITALS: BP 174/55
--- NOTE | 2020-01-31 20:48 | NUR ---
PHONED DR PRITCHETT IN REGARDS TO PT REPORTS OF MULTIOPLE EPIOSDES OF DIARRHEA. RECEIVED TELEPHONE ORDER FOR LOMITIL 1TAB PO Q4H PRN DIARRHEA. RAMONE WAIT FOR PHARM TO VERIFY AND MEDICATE PER ORDER. DEMONSTRATOR SALES & RN TO MONITOR NUMBER OF LOOSE STOOLS DURING SHIFT. CALL LIGHT WITHIN REACH, BED IN LOWEST POSITION, WILL CONTINUE TO MONITOR.
[2020-02-01 05:03] VITALS: BP 157/39
--- NOTE | 2020-02-01 05:05 | NUR ---
PT RESTED IN INTERVALS DURING SHIFT, PT HAD 3 EPISODES OF DIARRHEA. TWO EPISODES OF INCONTIENCE (LOOSE STOOL), AND ONE TIME PT WAS ABLE TO MAKE IT TO THE RESTROOM WITH ASSISTANCE. ATTEMPTED TO COLLECT STOOL ALTHOUGH PT URINATED IN CONTAINER WHICH MADE SAMPLE UNUSEABLE. WILL ATTEMPT TO COLLECT A SAMPLE FOR POSSIBLE C. DIFF. PT HAS HISTORY OF C. DIFF WHICH WAS NOT ENDORSED DURING SHIFT CHANGE. IV SITE REMAINS PATENT, PT DENIES SOB/CP/ABD PAIN. ALL COMFORT AND SAFETY MEASURES PROVIDED FOR, CALL LIGHT WITHIN REACH, BED IN LOWEST POSITION, WILL CONTINUE TO MONITOR.
[2020-02-01 06:24] LABS: BASOPHIL % 0.2 % (0-2); PLATELET COUNT 212 x10^3mcL (130-400)
[2020-02-01 06:30] LABS: RED CELL DISTRIBUTION WIDTH 14.9 % (11.5-14.5)
[2020-02-01 06:38] LABS: CALCIUM 8.4 mg/dL (8.5-10.1); CARBON DIOXIDE 27.7 mmol/L (21-32); CHLORIDE SERUM 107 mmol/L (98-107); CREATININE SERUM 1.4 mg/dL (0.6-1.0); GLUCOSE SERUM 97 mg/dL (74-106); POTASSIUM SERUM 4.2 mmol/L (3.5-5.1); SODIUM SERUM 143 mmol/L (136-145)
--- NOTE | 2020-02-01 07:27 | NUR ---
ENDORSED ALL CARE TO DAYSHIFT NURSE, NO ACUTE DISTRESS NOTED. ALL COMFORT AND SAFETY MEASURES PROVIDED FOR, CALL LIGHT WITHIN REACH, BEDIN LOWEST POSITION, ALL QUESTIONS AND CONCENRS ADDRESSED.
--- NOTE | 2020-02-01 07:40 | NUR ---
REPORT TAKEN FROM SURVEY RESEARCH ANALYST NURSE, PATIENT FOUND TO BE SLEEPING, CHEST RISE AND FALL OBSERVERED, BREATHING EQUAL AND UNLABORED, DID NOT WAKE FOR REPORT, WILL CONTINUE TO MONITOR.
[2020-02-01 08:54] VITALS: BP 130/44
[2020-02-01 11:44] VITALS: BP 110/35
--- NOTE | 2020-02-01 12:16 | NUR ---
PATIENT RESTING AT THIS TIME, CHEST RISE AND FALL OBSERVED, BREATHING EQUAL AND UNLABORED, WILL CONTINUE TO MONITOR.
[2020-02-01 17:16] VITALS: BP 125/40
--- NOTE | 2020-02-01 19:35 | NUR ---
PT RECEIVED FROM AM NURSE, PT AWAKE LAYING DOWN IN BED. PT AAOX4, ABLE TO FOLLOW COMMANDS AND MAKE NEEDS KNOWN. TELE#7 READING SR AT 81. DENIES CP/PRESSURE AT THIS TIME. PALPABLE PULSES TO ALL EXTREMETIES. NO EDEMA NOTED. LUNG SOUNDS DIMINISHED. BREATHING EVEN AND UNLABORED ON RA. NO SOB NOTED. ABD SOFT AND NONDISTENDED. ACITVE BS X4 QUAD. PT DENIES N/V. C/O DIARRHEA. PT JUST HAD AN EPISODE OF DIARRHEA. SNEHAL CARE DONE. VOIDS FREELY, BRP. AMBULATORY WITH WALKER. ACHYMOSIS TO RUE AND RIGHT HIP. IV TO RFA AND LFA SALINE LOCK. PATENT AND INTACT. SITE WNL. NO ACUTE DISTRESS NOTED. BED AT LOWEST SETTING. SIDE RAILS X2 UP. CALL LIGHT WITHING REACH. WILL CONT TO MONITOR
[2020-02-01 20:50] VITALS: BP 118/58
--- NOTE | 2020-02-01 22:24 | NUR ---
PT RESULTS FOR C.DIFF POSTIVE, DR PRITCHETT MADE AWARE. NEW ORDERS RECEIVED. ORDERS ENTERED AT THIS TIME.
--- NOTE | 2020-02-02 00:05 | NUR ---
PT RESTING COMFORTABLY IN BED WITH EYES CLOSED, EASILY AROUSABLE TO VERBAL STIMULI. BREATHING EVEN AND UNLABORED ON RA. NO ACUTE DISTRESS NOTED. SAFETY PRECAUTIONS IN PLACE. CALL LIGHT WITHING REACH. WILL CONT TO MONITOR.
--- NOTE | 2020-02-02 05:43 | NUR ---
PT SLEPT WELL THROUGHOUT THE NIGHT, BREATHING EVEN AND ANLABORED ON RA. NO SIGNIFICANT CHANGE DURING THE SHIFT. PT CONT TO HAVE DIARRHEA. DENIES ANY PAIN. ALL NEEDS ASSESSED AND ATTENDED TO. IV TO RFA INFUSING NS AT 70ML/HR. SITE WNL. SAFETY PRECAUTIONS IN PLACE. CALL LIGHT WITHING REACH. WILL CONT TO MONITOR AND ENDORSE CARE TO AM NURSE.
[2020-02-02 05:48] VITALS: BP 119/32
--- NOTE | 2020-02-02 08:30 | NUR ---
PATIENT ALERT/ORIENTED X4 ABLE TO MAKE NEEDS KNOWN, FOLLOWS COMMANDS. DENIES HEADACHE OR PAIN. TELE READING SR W/ OCC PVC'S/PAC'S. DENIES CP. PERIHPERAL PUSLES PALPABLE, NO EDEMA. DENIES NUMBNESS/TINGLING. REPORTS LOOSE STOOLS/DIARRHEA. DENIES ABD PAIN/NASUEA. AM MEDICATIONS GIVEN, NO ISSUES SWALLOWING OBSERVED. TOLERATED BREAKFAST MEAL WELL. CALL LIGHT WITHIN REACH, BSC IN ROOM, SAFETY PREC REINFORCED.
[2020-02-02 08:58] VITALS: BP 115/29
[2020-02-02 08:59] VITALS: BP 115/31
[2020-02-02 09:00] VITALS: BP 112/25
[2020-02-02 12:44] VITALS: BP 115/31
[2020-02-02 13:21] VITALS: BP 142/36
--- NOTE | 2020-02-02 13:40 | NUR ---
DISCHARGE ORDERS RECEIVED, PATIENT AWARE AND OKAY FOR NURSE TO NOTIFY FAMILY. CALL MADE TO DAUGHTER DIXIE, INFORMED HER OF DISCHARGE ORDER, MEDICATIONS, FOLLOW UP AND DC INSTRUCTIONS. VERBALIZED UNDERSTANDING.
== END 2020-02-02 15:26 | disposition home or self-care (01) | DRG 307 ==
LOC: ED 07:58 → DU 09:35
PROVIDERS: Specialist; ADMIT Internal Medicine
DX: I08.3 Combined rheumatic disorders of mitral, aortic and tricuspid valves (principal); I13.0 Hypertensive heart and chronic kidney disease with heart failure and stage 1 through stage 4 chronic kidney disease, or unspecified chronic kidney disease; A04.72 Enterocolitis due to Clostridium difficile, not specified as recurrent; I50.1 Left ventricular failure, unspecified; I42.9 Cardiomyopathy, unspecified; R51 Headache; R42 Dizziness and giddiness; R11.0 Nausea; E87.6 Hypokalemia; I25.10 Atherosclerotic heart disease of native coronary artery without angina pectoris; J44.9 Chronic obstructive pulmonary disease, unspecified; N18.9 Chronic kidney disease, unspecified; M32.9 Systemic lupus erythematosus, unspecified; M06.9 Rheumatoid arthritis, unspecified; D53.9 Nutritional anemia, unspecified; M10.9 Gout, unspecified; F41.9 Anxiety disorder, unspecified; Z79.82 Long term (current) use of aspirin; Z86.711 Personal history of pulmonary embolism; Z86.73 Personal history of transient ischemic attack (TIA), and cerebral infarction without residual deficits; Z90.710 Acquired absence of both cervix and uterus; Z88.5 Allergy status to narcotic agent; Z68.24 Body mass index [BMI] 24.0-24.9, adult
CPT/HCPCS: 36600; 83880; 84439; 87046; 87046-59; 87804; 94150; G0378; J3490; J7030; J8597; Q0092

== ENCOUNTER 2020-10-03 11:04 | Emergency (ER) | payer OTHER, SELFPAY ==
[~2020-10-03] VITALS: Ht 170.2 cm; Wt 54.4 kg
[~2020-10-03 11:04] MED LIST changes: +APR25 PO; +COZAAR25 M1 PO; +GRALISE600 MG PO; +ISO10 PO
[2020-10-03 11:11] VITALS: Ht 170.2 cm; Wt 54.4 kg
[2020-10-03 12:01] LABS: CALCIUM 8.5 mg/dL (8.5-10.1); CARBON DIOXIDE 30.4 mmol/L (21-32); CHLORIDE SERUM 108 mmol/L (98-107); CREATININE SERUM 1.2 mg/dL (0.6-1.0); GLUCOSE SERUM 189 mg/dL (74-106); POTASSIUM SERUM 4.8 mmol/L (3.5-5.1); SODIUM SERUM 144 mmol/L (136-145)
[2020-10-03 12:03] LABS: RED CELL DISTRIBUTION WIDTH 15.1 % (11.5-14.5)
[2020-10-03 12:04] LABS: PLATELET COUNT 105 x10^3mcL (130-400)
[2020-10-03 12:05] LABS: ALKALINE PHOSPHATASE 118 U/L (46-116); ALT/SGPT 13 U/L (14-59); AST/SGOT 16 U/L (15-37); BILIRUBIN TOTAL 0.6 mg/dL (0.20-1.00); TOTAL PROTEIN, SERUM 7.3 g/dL (6.4-8.2)
[2020-10-03 12:18] LABS: ALBUMIN 3.3 g/dL (3.4-5.0)
[2020-10-03 15:15] VITALS: BP 156/46
== END 2020-10-03 15:40 | disposition short-term general hospital (02) ==
LOC: ED 11:04
PROVIDERS: Emergency Medicine
DX: I50.9 Heart failure, unspecified (principal); I10 Essential (primary) hypertension; E11.9 Type 2 diabetes mellitus without complications; M10.9 Gout, unspecified; Z98.890 Other specified postprocedural states; Z90.710 Acquired absence of both cervix and uterus; Z88.5 Allergy status to narcotic agent; Z86.73 Personal history of transient ischemic attack (TIA), and cerebral infarction without residual deficits; Z90.49 Acquired absence of other specified parts of digestive tract; Z20.828 Contact with and (suspected) exposure to other viral communicable diseases
CPT/HCPCS: 83880; J1940